=== PATIENT | female | born 1965 | race American Indian/Alaskan Native ===

== ENCOUNTER 2022-06-17 16:31 | Emergency (ER) | payer MEDICAID ==
[2022-06-17 18:15] VITALS: BP 126/83
--- NOTE | 2022-06-17 18:16 | Emergency Department Report ---
ED Neuro Deficit HPI - General Chief Complaint: Neuro Symptoms/Deficit Stated Complaint: TINGLING ON LEFT SIDE Time Seen by Provider: 06/17/22 18:12 Source: patient, EMS Mode of arrival: Stretcher Limitations: No Limitations - History of Present Illness Initial Comments: CO LEFT SIDE TINGLING HEAD TO TOE. STARTED TODAY "SEVERAL HOURS" AGO CHEST PAIN/SOB COVID IMMUNIZED HOME- SHE HAS A BAG WITH HER. - Related Data Home Medications: Home Medications Medication Instructions Recorded Confirmed Last Taken Albuterol 1 inhalation INHALATION PRN PRN 08/07/15 09/24/15 09/24/15 0800 HCTZ 25 mg PO DAILY 08/07/15 09/24/15 09/24/15 0800 NexIUM 1 cap PO DAILY 08/07/15 09/24/15 09/24/15 0800 Norvasc 5 mg PO DAILY 08/07/15 09/24/15 09/24/15 0800 Ranitidine HCl 300 mg PO DAILY 08/07/15 09/24/15 09/24/15 0800 Allergies/Adverse Reactions: Allergies Allergy/AdvReac Type Severity Reaction Status Date / Time morphine Allergy Shortness Verified 08/07/15 15:23 of Breath ED Review of Systems ROS: Stated complaint: TINGLING ON LEFT SIDE Other details as noted in HPI ED Past Medical Hx - Past Medical History Hx Hypertension: Yes Hx CVA: No Hx Heart Attack/AMI: No Hx Congestive Heart Failure: No Hx Diabetes: No Hx Deep Vein Thrombosis: No Hx Pulmonary Embolism: No Hx GERD: Yes Hx Liver Disease: No Hx Renal Disease: No Hx of Cancer: No Hx Arthritis: Yes Hx Headaches / Migraines: No Hx Seizures: No Hx Kidney Stones: No Hx Psychiatric Treatment: No Hx Asthma: Yes Hx COPD: No Hx Tuberculosis: No Hx Dementia: No Hx HIV: No - Surgical History Past Surgical History?: Yes Additional Surgical History: HEMORRHOID, BUNION - Family History Family history: other (MOM DEC CVA) - Social History Smoking Status: Current Every Day Smoker Substance Use Type: Alcohol - Medications Home Medications: Home Medications Medication Instructions Recorded Confirmed Last Taken Type Albuterol 1 inhalation INHALATION PRN PRN 08/07/15 09/24/15 09/24/15 History 0800 HCTZ 25 mg PO DAILY 08/07/15 09/24/15 09/24/15 History 0800 NexIUM 1 cap PO DAILY 08/07/15 09/24/15 09/24/15 History 799 Norvasc 5 mg PO DAILY 08/07/15 09/24/15 09/24/15 History 799 Ranitidine HCl 300 mg PO DAILY 08/07/15 09/24/15 09/24/15 History 08 ED Neuro Physical Exam - General Limitations: No Limitations General appearance: alert, in no apparent distress Suspected Stroke: No ED Course - Reevaluation(s) Reevaluation #1: 06/17/22 18:14 NO FOCAL DEFICIT - Medical Decision Making MSE COMPLETED - WORK UP PENDING Critical care attestation.: If time is entered above; I have spent that time in minutes in the direct care of this critically ill patient, excluding procedure time. ED Disposition Clinical Impression: Chest pain Disposition: 30 STILL A PATIENT Is pt being admited?: No Does the pt Need Aspirin: No Condition: Stable Instructions: Nonspecific Chest Pain, Adult
[2022-06-17 19:21] LABS: Basophils # (Auto) 0.1 K/mm3 (0.0-0.1); Basophils % (Auto) 0.7 % (0.0-1.8); Eosinophils # (Auto) 0.3 K/mm3 (0.0-0.4); Eosinophils % (Auto) 3.3 % (0.0-4.3); Hematocrit 42.5 % (30.3-42.9); Hemoglobin 14.4 gm/dl (10.1-14.3); Lymphocytes # (Auto) 2.8 K/mm3 (1.2-5.4); Lymphocytes % (Auto) 35.2 % (13.4-35.0); Mean Corpuscular HGB Conc 34 % (30-34); Mean Corpuscular Volume 97 fl (79-97); Monocytes # (Auto) 0.4 K/mm3 (0.0-0.8); Monocytes % (Auto) 5.6 % (0.0-7.3); Platelet Count 284 K/mm3 (140-440); Red Blood Count 4.41 M/mm3 (3.65-5.03)
[2022-06-17 19:36] LABS: Creatine Kinase MB 1.8 ng/mL (0.0-4.0)
[2022-06-17 19:39] LABS: Alanine Aminotransferase 19 units/L (7-56); Albumin 4.8 g/dL (3.9-5); BUN/Creatinine Ratio 24; Blood Urea Nitrogen 19 mg/dL (7-17); Calcium 9.8 mg/dL (8.4-10.2); Hemolysis Index 7
--- NOTE | 2022-06-17 19:49 | Cat Scan Report ---
CT HEAD WITHOUT CONTRAST INDICATION / CLINICAL INFORMATION: Stroke symptoms. Patient reports left-sided paresthesias. TECHNIQUE: All CT scans at this location are performed using CT dose reduction for ALARA by means of automated e xposure control. COMPARISON: None available. FINDINGS: HEMORRHAGE: No evidence of intracranial hemorrhage or extra-axial fluid collection. EXTRA-AXIAL SPACES: Cortical sulci, sylvian fissures and basilar cisterns have an unremarkable appear ance. VENTRICULAR SYSTEM: The third and lateral ventricles are of normal size and configuration. CEREBRAL PARENCHYMA: No areas of abnormal brain parenchymal attenuation are identified. There is no i ndication of recent infarction. MIDLINE SHIFT OR HERNIATION: There is no mass effect. CEREBELLUM / BRAINSTEM: Brainstem and cerebellum have an unremarkable appearance. MIDLINE STRUCTURES:No abnormalities of the pituitary gland or pineal region are identified. INTRACRANIAL VESSELS:No abnormalities are identified on this noncontrast head CT. ORBITS: visualized portions of the orbits have an unremarkable appearance. SOFT TISSUES of HEAD: No significant abnormality. CALVARIUM: Evaluation of bone windows reveals no abnormalities. PARANASAL SINUSES / MASTOID AIR CELLS: Visualized portions of the paranasal sinuses are free from inf lammatory mucosal disease. Mastoid air cells are normally pneumatized. ADDITIONAL FINDINGS: None. IMPRESSION: 1. No significant intracranial abnormality. Signer Name: Cabrera Sumner MD Signed: 06/17/2022 7:45 PM Workstation Name: [id number]
--- NOTE | 2022-06-18 09:05 | Electrocardiograph Report ---
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
== END 2022-06-17 22:00 | disposition still patient (30) ==
LOC: ED 16:31
DX: R07.9 Chest pain, unspecified (principal); F17.200 Nicotine dependence, unspecified, uncomplicated; F10.20 Alcohol dependence, uncomplicated; Z88.5 Allergy status to narcotic agent; I10 Essential (primary) hypertension
CPT/HCPCS: 36415; 70450; 80053; 82550; 82553; 84484; 85025; 93005; 99284

== ENCOUNTER 2022-06-19 08:25 | Day surgery (SDC) | payer MEDICAID ==
--- NOTE | 2022-06-19 09:54 | Anesthesia Day of Surgery ---
Anesthesia Day of Surgery - Day of Surgery Patient Examined: Yes Patient H&P Reviewed: Yes Patient is NPO: Yes
--- NOTE | 2022-06-19 09:58 | Anesthesia Consultation ---
Anesthesia Consult and Med Hx Date of service: 06/19/22 - Airway Anesthetic Teeth Evaluation: Good ROM Head & Neck: Adequate Mental/Hyoid Distance: Adequate Mallampati Class: Class III Intubation Access Assessment: Probably Good - Pre-Operative Health Status ASA Pre-Surgery Classification: ASA3 Proposed Anesthetic Plan: MAC (GA if needed) - Pulmonary Hx Smoking: Yes Hx Asthma: Yes Hx Respiratory Symptoms: No COPD: No Hx Sleep Apnea: No - Cardiovascular System Hx Hypertension: Yes Hx Heart Attack/AMI: No - Central Nervous System Hx Seizures: No Hx Psychiatric Problems: No - Gastrointestinal Hx Ulcer: Yes (2014) Hx Gastroesophageal Reflux Disease: Yes (food related) - Endocrine Hx Renal Disease: No Hx Liver Disease: No Hx Non-Insulin Dependent Diabetes: No - Hematic Hx Anemia: No Hx Sickle Cell Disease: No - Other Systems Hx Cancer: No Hx Obesity: No - Additional Comments Anesthesia Medical History Comments: Was in ED [id number] for tingling on left side. Head CT negative and ECG no acute changes
[2022-06-19] MEDS ORDERED: SODIUM CHLORIDE 0.9% 100 ML IVPB IV ONE (11:16)
[2022-06-19] MEDS ORDERED: propofoL 200 MG/20 ML VIAL IV ONE ×2 (11:20→11:40)
[2022-06-19] MEDS ORDERED: LIDOCAINE MPF (2%) 20 MG/1 ML VIAL 5 ML ONE (11:23)
[2022-06-19] MEDS ORDERED: LIDOCAINE 2% UROJECT 10 ML JELLY ONE (11:42)
[2022-06-19] MEDS ORDERED: LIDOCAINE 2% UROJECT 10 ML JELLY TP ONE (11:51)
--- NOTE | 2022-06-19 12:13 | Operative Report ---
Operative Report Operative Report: DATE:06/19/2022 Colonoscopy, hemorrhoidal band ligation. ATTENDING PHYSICIAN: Lazaro North M.D. VACUUM FRAME OPERATOR: Lazaro North M.D. INDICATIONS: Patient is a 57 y.o. female who presents for colorectal cancer screening . Patient also has a history of recurrent rectal bleeding presumed due to internal hemorrhoids. A colonoscopy is done to evaluate patient so that treatment may be directed based on the findings. CONSENT: Informed consent was obtained after the patient was advised regarding the nature of this procedure, its indications, potential benefits as well as possible complications including but not limited to bleeding, perforation, adverse reaction to medications, infection as well as cardiopulmonary complications. An informed written and verbal consent was then obtained after due opportunity was provided for questions and answers. MONITORING: Patient monitored continuously with pulse oximetry, electrocardiographic recordings as well as automatic blood pressure recordings. Patient remained stable throughout the procedure with no untoward events. PREOPERATIVE ASSESSMENT: Patient was assessed immediately prior to this procedure for capacity to tolerate moderate sedation/monitored anesthesia care. [place] [employer] classification is 2. Mallampati class is 2. Hyomental distance is 3. INSTRUMENT: Olympus video colonoscope [id number]), GIF [id number]) MEDICATIONS: Propofol given intravenously in divided doses. For details, please refer to anesthesia records. DESCRIPTION OF PROCEDURE: Prior to onset of procedure, patient was carefully examined. Patient's history and physical was updated. Patient was placed in the left lateral decubitus position, after achieving sedation, a digital rectal examination was performed following which the colonoscope was introduced into the anal verge and advanced under direct visualization to the cecum which was identified by the ileocecal valve, the appendiceal orifice, the cecal strap as well as by direct transillumination in the right lower quadrant. Color texture mucosa and anatomy of the colon were carefully examined with the colonoscope. The colonoscope was then gently withdrawn with careful inspection of all mucosa surfaces. The patient tolerated the procedure well with no complications. After completion of the examination, patient was transferred to the recovery room. The prep written regimen was GoLYTELY and the preparation was adequate with the Sterling prep scale score of six. The following findings were noted. FINDINGS: The entirety of the colon was normal. On the retroflexed view at the anal verge patient had prominent large internal hemorrhoids. The GIF [id number] Olympus endoscope was then preloaded with the multiband ligator ([employer]). This was then introduced into the rectum, on the retroflex examination at the annal verge, hemorrhoidal by ligation was performed. Two bands were applied. After the bands were applied the endoscope was removed. Lidocaine gel was then applied. Patient tolerated procedure well with no untoward events. IMPRESSION: Prominent large internal Hemorrhoids, status post successful hemoglobin ligation. PLAN: High fiber diet. Daily sitz bath Apply hemorrhoidal suppositories/ointments PRN Use stool softener's as needed follow-up in two weeks as outpatient Repeat colonoscopy in 10 year
[2022-06-19 13:26] VITALS: BP 136/90
== END 2022-06-19 13:10 | disposition home or self-care (01) ==
LOC: GIO 08:25
PROVIDERS: ATTEND Internal Medicine Gastroenterology
DX: K62.5 Hemorrhage of anus and rectum (principal); K64.8 Other hemorrhoids; F17.210 Nicotine dependence, cigarettes, uncomplicated; K21.9 Gastro-esophageal reflux disease without esophagitis; I10 Essential (primary) hypertension; J45.909 Unspecified asthma, uncomplicated; M19.90 Unspecified osteoarthritis, unspecified site; Z88.5 Allergy status to narcotic agent; Z86.010 Personal history of colon polyps; Z98.51 Tubal ligation status; Z98.890 Other specified postprocedural states; Z80.0 Family history of malignant neoplasm of digestive organs
CPT/HCPCS: 45398; J2704